=== PATIENT | female | born 1970 ===

== ENCOUNTER 2020-01-13 03:36 | Emergency (ER) | payer OTHER ==
[2020-01-13] MEDS ORDERED: Ketorolac Tromethamine 30 MG/ML VIAL ONE (04:30)
[2020-01-13] MEDS ORDERED: Methocarbamol 500 MG TAB PO SCH (05:00)
== END 2020-01-13 05:52 | disposition home or self-care (01) ==
LOC: ERS 03:36
DX: M54.2 Cervicalgia (principal); F17.210 Nicotine dependence, cigarettes, uncomplicated
CPT/HCPCS: 96372; 99283; J1885